=== PATIENT | male | born 1955 | race Caucasian/White ===

== ENCOUNTER 2019-10-24 11:16 | Inpatient (IN) | payer MEDICARE, MEDICAID ==
[~2019-10-24] VITALS: Ht 157.5 cm; Wt 61.8 kg
[2019-10-24] MEDS ORDERED: piperacillin/tazo 3.375gm/50ml 50 ML IV ONE (12:50)
[2019-10-24 14:47] LABS: BASOPHILS % (AUTO) 0.3 % (0-1); EOSINOPHILS % (AUTO) 0 % (0-6); HEMATOCRIT 39.1 % (42.0-52.0); LYMPHOCYTES # (AUTO) 2.1 X10'3 (1.1-4.8); LYMPHOCYTES % (AUTO) 16.6 % (21-51); MEAN CORPUSCULAR HEMOGLOBIN 30.9 PG (27.0-31.0); MEAN CORPUSCULAR HGB CONC 33.3 g/dL (33.0-36.5); MEAN CORPUSCULAR VOLUME 92.8 FL (78-98); MEAN PLATELET VOLUME 8.6 FL (7.4-10.4); MONOCYTES # (AUTO) 0.9 X10'3 (0-0.9); NEUTROPHILS # (AUTO) 9.7 X10'3 (1.8-7.7); NEUTROPHILS % (AUTO) 76.1 % (42-75); PLATELET COUNT 157 X10'3 (140-440); RED BLOOD COUNT 4.21 X10'6 (4.70-6.10); RED CELL DISTRIBUTION WIDTH 14.1 % (11.5-14.5); WHITE BLOOD COUNT 12.8 X10'3 (4.5-11.0)
[2019-10-24 14:55] LABS: ALANINE AMINOTRANSFERASE 19 U/L (12-78); ALBUMIN/GLOBULIN RATIO 0.7 (1.1-1.5); ANION GAP 6 (8-16); ASPARTATE AMINO TRANSFERASE 20 U/L (10-37); BILIRUBIN,TOTAL 0.4 MG/DL (0.1-1.0); BLOOD UREA NITROGEN 17 MG/DL (7-18); BUN/CREATININE RATIO 23.9 (5.4-32.0); CALCIUM 8.8 MG/DL (8.5-10.1); CHLORIDE 100 MMOL/L (99-107); CREATININE 0.71 MG/DL (0.60-1.10); GLUCOSE 128 MG/DL (70-104); SODIUM 139 MMOL/L (135-145); TOTAL CARBON DIOXIDE 33.5 MMOL/L (24-32); TOTAL PROTEIN 7.3 G/DL (6.4-8.2); eGFR > 90 ML/MIN
[2019-10-24 14:56] LABS: ALKALINE PHOSPHATASE 67 IU/L (46-116)
[2019-10-24] MEDS ORDERED: normal saline 1000ML IV soln IVB ONE (15:35)
[2019-10-24] MEDS ORDERED: DIVA-74 PO (15:49)
[2019-10-24] MEDS ORDERED: FLUV50TA3 PO (15:49)
[2019-10-24] MEDS ORDERED: CLON-514 PO (15:49)
[2019-10-24] MEDS ORDERED: DIVA500T9 PO (15:49)
[2019-10-24] MEDS ORDERED: DOCU100C41 PO (15:49)
[2019-10-24] MEDS ORDERED: CLON0.252 PO (15:49)
[2019-10-24] MEDS ORDERED: PANT20TA3 PO (15:49)
[2019-10-24] MEDS ORDERED: acetaminophen 325mg tablet PO PRN ×2 (15:50)
[2019-10-24] MEDS ORDERED: bisacodyl 10mg suppository rectal RC PRN (15:50)
[2019-10-24] MEDS ORDERED: mag hydrox/Alum hydrox/simeth 30ml oral suspension PO PRN (15:50)
[2019-10-24] MEDS ORDERED: metoclopramide 5 mg/ml inj IV PRN (15:50)
[2019-10-24] MEDS ORDERED: magnesium hydroxide 30ml (MOM) UD suspension PO PRN (15:50)
[2019-10-24] MEDS ORDERED: HYDROcodone/acetaminophen 5mg/325mg tablet PO PRN (15:50)
[2019-10-24] MEDS ORDERED: ondansetron/PF 4mg/2ml inj IV PRN (15:50)
[2019-10-24] MEDS ORDERED: SIMV10TA98 PO (15:52)
[2019-10-24] MEDS ORDERED: POLY17PO10 PO (15:52)
[2019-10-24] MEDS ORDERED: ZOLP10TA PO (15:52)
[2019-10-24] MEDS ORDERED: CHOL400T14 PO (15:55)
[2019-10-24] MEDS ORDERED: FISH12002 PO (15:55)
[2019-10-24] MEDS ORDERED: LORA10TA7 PO (15:55)
[2019-10-24] MEDS ORDERED: CARB15DR91 EACH EAR (15:55)
[2019-10-24] MEDS ORDERED: MELA3TAB64 PO (15:55)
[2019-10-24] MEDS ORDERED: piperacillin/tazo 3.375gm/50ml 50 ML IV SCH (16:00)
[2019-10-24] MEDS: normal saline 1000ml 1,000 ML IV SCH (17:08)
[2019-10-24] MEDS ORDERED: MESSAGE TO PHARMACY PO ONE (17:15)
[2019-10-24] MEDS ORDERED: dextrose 50%-water 50ml dispensing syringe IV PRN ×2 (17:15)
[2019-10-24] MEDS ORDERED: dextrose ORAL solution 15 GM/59 ML bottle PO PRN ×2 (17:15)
[2019-10-24] MEDS ORDERED: glucagon, human recombinant 1mg kit SUBCUT PRN (17:15)
[2019-10-24] MEDS ORDERED: insulin Lispro (HumaLOG) vial - multi-dose SQ SCH (17:15)
--- NOTE | 2019-10-24 17:26 | NUR ---
CHARAN SZYMANSKI, PATIENT'S CONSERVATOR PHONE NUMBER: [phone]
[2019-10-24] MEDS ORDERED: zolpidem 5mg tablet PO SCH (17:40)
--- NOTE | 2019-10-24 18:30 | NUR ---
Received report from ER nurse Abdiel RN. Will assume patient care.
[2019-10-24 19:00] VITALS: BP 106/66
--- NOTE | 2019-10-24 19:30 | NUR ---
Dr. Vides return call. Ok to give patient's night medications tonight. Patient will have ST eval tomorrow.
[2019-10-24 19:53] LABS: PARTIAL THROMBOPLASTIN TIME 31 SECONDS (22-32)
[2019-10-24] MEDS ORDERED: temazepam 15mg capsule PO PRN (21:00)
[2019-10-24] MEDS: insulin glargine (Lantus) pen - multi-dose SQ SCH (21:00)
[2019-10-24 22:00] VITALS: BP 112/45
[2019-10-24] MEDS: clonazePAM 1mg tablet PO SCH (22:39)
[2019-10-24] MEDS: fluvoxamine 25 MG tablet PO SCH (22:39)
[2019-10-24] MEDS: divalproex sod 250mg ER (24-hour) tablet PO SCH (22:39)
[2019-10-24] MEDS: docusate sod 100mg capsule PO SCH (22:39)
[2019-10-24] MEDS: Melatonin 3mg tablet PO SCH (22:40)
[2019-10-24] MEDS: divalproex sodium 250mg tablet PO SCH (22:40)
[2019-10-24] MEDS: piperacillin/tazo 3.375gm/50ml 50 ML IV SCH (23:51)
[2019-10-25] MEDS: normal saline 1000ml 1,000 ML IV SCH ×3 (02:26→13:40)
--- NOTE | 2019-10-25 04:10 | NUR ---
Dr. Kapadia notified of patient's positive BC in the aerobic bottle, Gram + in cocci and cluster. No new orders. Patient currently on Zosyn.
[2019-10-25 06:00] VITALS: BP 103/55
--- NOTE | 2019-10-25 06:32 | NUR ---
Problems reprioritized. Patient report given, questions answered & plan of care reviewed with Karli LIZ.
[2019-10-25 06:59] LABS: ALANINE AMINOTRANSFERASE 19 U/L (12-78); ALBUMIN 2.4 G/DL (3.4-5.0); ALBUMIN/GLOBULIN RATIO 0.6 (1.1-1.5); ALKALINE PHOSPHATASE 56 IU/L (46-116); ANION GAP 4 (8-16); ASPARTATE AMINO TRANSFERASE 14 U/L (10-37); BILIRUBIN,TOTAL 0.3 MG/DL (0.1-1.0); BLOOD UREA NITROGEN 14 MG/DL (7-18); CALCIUM 8.1 MG/DL (8.5-10.1); CHLORIDE 110 MMOL/L (99-107); GLUCOSE 99 MG/DL (70-104); PHOSPHORUS 2.6 MG/DL (2.3-4.5); POTASSIUM 3.8 MMOL/L (3.5-5.1); SODIUM 145 MMOL/L (135-145); TOTAL PROTEIN 6.1 G/DL (6.4-8.2); eGFR > 90 ML/MIN
[2019-10-25] MEDS: piperacillin/tazo 3.375gm/50ml 50 ML IV SCH ×2 (08:30→16:14)
[2019-10-25] MEDS: fluvoxamine 25 MG tablet PO SCH ×2 (08:31→20:57)
[2019-10-25] MEDS: polyethylene glycol 3350 17gm powd pack PO SCH (08:31)
[2019-10-25] MEDS: enoxaparin 40mg/0.4ml syringe SQ SCH (08:31)
[2019-10-25] MEDS: docusate sod 100mg capsule PO SCH ×2 (08:31→20:00)
[2019-10-25] MEDS: pantoprazole 40mg Tablet.DR PO SCH (08:31)
[2019-10-25] MEDS: divalproex sod 250mg ER (24-hour) tablet PO SCH ×3 (08:32→20:57)
--- NOTE | 2019-10-25 09:49 | NUR ---
DM consult A1c 8; Patient is documented as confused and history of developmental delay. Defer DM education at this time. Patient seen by ST, recommends pureed meals with honey thick liquids, dietary aware. Addendum: 10/25/19 at [address] Amended: Links added.
[2019-10-25 10:00] VITALS: BP 97/49
[2019-10-25 11:31] LABS: BASOPHILS # (AUTO) 0.1 X10'3 (0-0.2); BASOPHILS % (AUTO) 0.7 % (0-1); EOSINOPHILS % (AUTO) 0.2 % (0-6); HEMOGLOBIN 10.6 g/dl (14.0-17.9); LYMPHOCYTES % (AUTO) 21.4 % (21-51); MEAN CORPUSCULAR HEMOGLOBIN 31.3 PG (27.0-31.0); MEAN CORPUSCULAR HGB CONC 33.2 g/dL (33.0-36.5); MEAN CORPUSCULAR VOLUME 94.1 FL (78-98); MEAN PLATELET VOLUME 9.2 FL (7.4-10.4); MONOCYTES # (AUTO) 0.6 X10'3 (0-0.9); MONOCYTES % (AUTO) 6.1 % (2-12); NEUTROPHILS # (AUTO) 6.8 X10'3 (1.8-7.7); NEUTROPHILS % (AUTO) 71.6 % (42-75); PLATELET COUNT 136 X10'3 (140-440); RED CELL DISTRIBUTION WIDTH 14.3 % (11.5-14.5); WHITE BLOOD COUNT 9.5 X10'3 (4.5-11.0)
--- NOTE | 2019-10-25 11:41 | NUR ---
Picc nurse and Woc nurse in with patient.
--- NOTE | 2019-10-25 12:12 | NUR ---
Vascular consult performed on patient by request of bedside nurse. They had requested an extended PIV placement for this patient to aid in lab draws and medication administration as his current access is in his right gregorio. Patient's vasculature noted to be too small for extended catheter placement as well as arms too contracted for safe and proper placement. With assistance from bedside pct was able to placed 20g PIV in right forearm. Patient tolerated well, Bedside RN aware. Addendum: 10/25/19 at 1215 by Constance Malcolm RN Amended: Links added.
[2019-10-25] MEDS: CLONAZEPAM 0.25 MG oral disentigrating tablet (ODT) PO SCH (12:30)
[2019-10-25 18:00] VITALS: BP 112/51
--- NOTE | 2019-10-25 19:00 | NUR ---
Patient in room ORTHO 4021. I have received report from Karli LIZ and had the opportunity to ask questions and assume patient care.
[2019-10-25] MEDS: clonazePAM 1mg tablet PO SCH (20:56)
[2019-10-25] MEDS: divalproex sodium 250mg tablet PO SCH (20:57)
[2019-10-25] MEDS: Melatonin 3mg tablet PO SCH (20:58)
[2019-10-25] MEDS: insulin glargine (Lantus) pen - multi-dose SQ SCH (21:00)
[2019-10-25 22:00] VITALS: BP 127/66
[2019-10-26] MEDS: piperacillin/tazo 3.375gm/50ml 50 ML IV SCH ×4 (00:09→23:45)
[2019-10-26 06:00] VITALS: BP 122/75
--- NOTE | 2019-10-26 06:05 | NUR ---
Patient in room ORTHO 4021. I have received report from Remi LIZ and had the opportunity to ask questions and assume patient care.
[2019-10-26 06:24] LABS: BASOPHILS % (AUTO) 0.2 % (0-1); EOSINOPHILS # (AUTO) 0.1 X10'3 (0-0.9); EOSINOPHILS % (AUTO) 1.7 % (0-6); HEMATOCRIT 32.9 % (42.0-52.0); HEMOGLOBIN 10.8 g/dl (14.0-17.9); LYMPHOCYTES # (AUTO) 1.9 X10'3 (1.1-4.8); LYMPHOCYTES % (AUTO) 27.6 % (21-51); MEAN CORPUSCULAR HEMOGLOBIN 31.3 PG (27.0-31.0); MEAN CORPUSCULAR HGB CONC 32.9 g/dL (33.0-36.5); MEAN CORPUSCULAR VOLUME 95.3 FL (78-98); MEAN PLATELET VOLUME 8.9 FL (7.4-10.4); MONOCYTES # (AUTO) 0.5 X10'3 (0-0.9); MONOCYTES % (AUTO) 8.1 % (2-12); NEUTROPHILS # (AUTO) 4.2 X10'3 (1.8-7.7); NEUTROPHILS % (AUTO) 62.4 % (42-75); PLATELET COUNT 139 X10'3 (140-440); RED BLOOD COUNT 3.46 X10'6 (4.70-6.10); RED CELL DISTRIBUTION WIDTH 14.2 % (11.5-14.5); WHITE BLOOD COUNT 6.8 X10'3 (4.5-11.0)
[2019-10-26 06:51] LABS: ALANINE AMINOTRANSFERASE 20 U/L (12-78); ALBUMIN 2.3 G/DL (3.4-5.0); ALBUMIN/GLOBULIN RATIO 0.6 (1.1-1.5); ALKALINE PHOSPHATASE 56 IU/L (46-116); ANION GAP 4 (8-16); ASPARTATE AMINO TRANSFERASE 17 U/L (10-37); BILIRUBIN,TOTAL 0.3 MG/DL (0.1-1.0); BLOOD UREA NITROGEN 19 MG/DL (7-18); BUN/CREATININE RATIO 28.4 (5.4-32.0); CALCIUM 8.1 MG/DL (8.5-10.1); CHLORIDE 113 MMOL/L (99-107); CREATININE 0.67 MG/DL (0.60-1.10); GLUCOSE 107 MG/DL (70-104); PHOSPHORUS 2.4 MG/DL (2.3-4.5); SODIUM 149 MMOL/L (135-145); TOTAL CARBON DIOXIDE 32.3 MMOL/L (24-32); TOTAL PROTEIN 6.3 G/DL (6.4-8.2); eGFR > 90 ML/MIN
[2019-10-26] MEDS: enoxaparin 40mg/0.4ml syringe SQ SCH (07:37)
[2019-10-26] MEDS: CLONAZEPAM 0.25 MG oral disentigrating tablet (ODT) PO SCH (07:38)
[2019-10-26] MEDS: divalproex sod 250mg ER (24-hour) tablet PO SCH ×3 (07:38→21:00)
[2019-10-26] MEDS: docusate sod 100mg capsule PO SCH ×2 (07:38→20:59)
[2019-10-26] MEDS: pantoprazole 40mg Tablet.DR PO SCH (07:38)
[2019-10-26] MEDS: fluvoxamine 25 MG tablet PO SCH ×2 (07:38→21:00)
[2019-10-26] MEDS: polyethylene glycol 3350 17gm powd pack PO SCH (07:38)
[2019-10-26] MEDS: normal saline 1000ml 1,000 ML IV SCH (07:50)
[2019-10-26 10:00] VITALS: BP 136/73
[2019-10-26 17:00] VITALS: BP 158/72
--- NOTE | 2019-10-26 18:00 | NUR ---
Received report from Karli LIZ. assumed care of patient.
--- NOTE | 2019-10-26 18:16 | NUR ---
Problems reprioritized. Patient report given, questions answered & plan of care reviewed with Xi RN.
[2019-10-26] MEDS: insulin glargine (Lantus) pen - multi-dose SQ SCH (21:00)
[2019-10-26] MEDS: clonazePAM 1mg tablet PO SCH (21:00)
[2019-10-26] MEDS: divalproex sodium 250mg tablet PO SCH (21:00)
[2019-10-26] MEDS: Melatonin 3mg tablet PO SCH (21:00)
[2019-10-26 22:00] VITALS: BP 122/46
[2019-10-27 06:30] LABS: ALANINE AMINOTRANSFERASE 19 U/L (12-78); ALBUMIN 2.5 G/DL (3.4-5.0); ALBUMIN/GLOBULIN RATIO 0.6 (1.1-1.5); ALKALINE PHOSPHATASE 60 IU/L (46-116); ANION GAP 3 (8-16); ASPARTATE AMINO TRANSFERASE 19 U/L (10-37); BILIRUBIN,TOTAL 0.4 MG/DL (0.1-1.0); BLOOD UREA NITROGEN 18 MG/DL (7-18); CALCIUM 8.5 MG/DL (8.5-10.1); CHLORIDE 109 MMOL/L (99-107); GLUCOSE 103 MG/DL (70-104); PHOSPHORUS 2.4 MG/DL (2.3-4.5); SODIUM 147 MMOL/L (135-145); TOTAL CARBON DIOXIDE 35.1 MMOL/L (24-32); TOTAL PROTEIN 6.6 G/DL (6.4-8.2); eGFR > 90 ML/MIN
[2019-10-27 06:32] LABS: BASOPHILS % (AUTO) 0.2 % (0-1); EOSINOPHILS # (AUTO) 0.1 X10'3 (0-0.9); EOSINOPHILS % (AUTO) 2.2 % (0-6); HEMATOCRIT 35.3 % (42.0-52.0); HEMOGLOBIN 11.8 g/dl (14.0-17.9); LYMPHOCYTES % (AUTO) 32.2 % (21-51); MEAN CORPUSCULAR HEMOGLOBIN 31.8 PG (27.0-31.0); MEAN CORPUSCULAR HGB CONC 33.4 g/dL (33.0-36.5); MEAN CORPUSCULAR VOLUME 95.2 FL (78-98); MEAN PLATELET VOLUME 8.5 FL (7.4-10.4); MONOCYTES # (AUTO) 0.6 X10'3 (0-0.9); MONOCYTES % (AUTO) 10.1 % (2-12); NEUTROPHILS # (AUTO) 3.4 X10'3 (1.8-7.7); NEUTROPHILS % (AUTO) 55.3 % (42-75); PLATELET COUNT 180 X10'3 (140-440); RED CELL DISTRIBUTION WIDTH 14.2 % (11.5-14.5); WHITE BLOOD COUNT 6.1 X10'3 (4.5-11.0)
--- NOTE | 2019-10-27 06:40 | NUR ---
Gave report to Yuliet LIZ.
--- NOTE | 2019-10-27 06:57 | NUR ---
Patient in room ORTHO 4021. I have received report from [facility] and had the opportunity to ask questions and assume patient care.
[2019-10-27 07:45] LABS: NUCLEATED RED BLOOD CELLS 1 /100WBC (0-0); PLATELET ESTIMATE NORMAL; POLYCHROMASIA 1+; TOTAL CELLS COUNTED 100
[2019-10-27 08:00] VITALS: BP 138/70
[2019-10-27] MEDS: pantoprazole 40mg Tablet.DR PO SCH (08:12)
[2019-10-27] MEDS: CLONAZEPAM 0.25 MG oral disentigrating tablet (ODT) PO SCH (08:13)
[2019-10-27] MEDS: docusate sod 100mg capsule PO SCH (08:13)
[2019-10-27] MEDS: fluvoxamine 25 MG tablet PO SCH (08:14)
[2019-10-27] MEDS: divalproex sod 250mg ER (24-hour) tablet PO SCH ×2 (08:14→13:29)
[2019-10-27] MEDS: polyethylene glycol 3350 17gm powd pack PO SCH (08:15)
[2019-10-27] MEDS: piperacillin/tazo 3.375gm/50ml 50 ML IV SCH (08:15)
[2019-10-27] MEDS: enoxaparin 40mg/0.4ml syringe SQ SCH (08:15)
--- NOTE | 2019-10-27 10:00 | NUR ---
Notified Dr. Vides of rhonchi/upper airway wheezing. MD stated there is no change from previous day. Patient is sating 95-96% on RA and is afebrile with a normal WBC. Patient is being cleared to discharge later.
[2019-10-27] MEDS ORDERED: LEVO500T2 PO (10:27)
--- NOTE | 2019-10-27 10:38 | NUR ---
Patient has orders to discharge home. Notified the social organization professor RN for the halfway "Kassi" and Deanna the instructor private of his upcoming discharge. Kassi stated she would be up after 12:30 to sign paperwork and Deanna stated she would be doing the actual transportation around 1:00 pm. Notified Haley the conservator and left a voice mail updating her on the orders to discharge.
--- NOTE | 2019-10-27 10:39 | NUR ---
Haley Woodard called back stating it was fine for Kassi the RN of [facility] to sign discharge paperwork.
[2019-10-27 11:00] VITALS: BP 125/74
--- NOTE | 2019-10-27 14:13 | NUR ---
Patient was cleared to discharge. All discharge instructions reviewed with Sakshi/nursing home RN and Deanna the nursing home school janitor. Prescription for Levaquin called into [facility] on [address]. Kassi stated she would be scheduling his follow up appointment and declined wanting the nurse to schedule prior to discharge. PIV's DC'd with no issues. Skin CD&I, however there is a large purple bruise noted to his right groin which was shown to Kassi and Deanna. LVM for Patients conservator as well. Vital signs stable upon discharge. Will continue to monitor.
== END 2019-10-27 13:40 | disposition home health service (06) | DRG 179 ==
LOC: ER 11:16 → ED HOLD 15:50 → ORTHO 4S 18:50
PROVIDERS: ADMIT Family Medicine; ATTEND Family Medicine
PROC: 0Y973ZZ Drainage of Right Femoral Region, Percutaneous Approach (ICD-10-PCS; principal; 2019-10-24)
DX: J69.0 Pneumonitis due to inhalation of food and vomit (principal); E11.9 Type 2 diabetes mellitus without complications; E78.5 Hyperlipidemia, unspecified; F32.9 Major depressive disorder, single episode, unspecified; F42.9 Obsessive-compulsive disorder, unspecified; D64.9 Anemia, unspecified; G40.909 Epilepsy, unspecified, not intractable, without status epilepticus; J44.9 Chronic obstructive pulmonary disease, unspecified; K21.9 Gastro-esophageal reflux disease without esophagitis; R09.02 Hypoxemia; R13.10 Dysphagia, unspecified; F39 Unspecified mood [affective] disorder
CPT/HCPCS: 36415; 71045; 76937; 80053; 82948; 83036; 83605; 83735; 84100; 84145; 85025; 85610; 85730; 87040; 87077; 87081; 87186; 92508; 92616; 93005; 96365; 97116; 97161; 97530; 99285; G0378; J1650; J1815; J2543; J7030